=== PATIENT | male | born 1960 | race Caucasian/White ===

== ENCOUNTER 2024-01-13 10:45 | Emergency (ER) | payer OTHER ==
[2024-01-13] MEDS: Morphine 10 MG/ML SDV IM ONE (11:10)
== END 2024-01-13 11:41 | disposition home or self-care (01) ==
LOC: LB.ED 10:45
DX: S43.014A Anterior dislocation of right humerus, initial encounter (principal); S43.034A Inferior dislocation of right humerus, initial encounter; W00.0XXA Fall on same level due to ice and snow, initial encounter
CPT/HCPCS: 23650; 73020-RT; 73030-RT; 96372; 99283; 99283-25; J2270